=== PATIENT | male | born 1975 | race African-American/Black ===

== ENCOUNTER 2019-01-09 09:55 | Emergency (ER) | payer MEDICAID ==
[~2019-01-09] VITALS: Ht 188 cm; Wt 122.5 kg
--- NOTE | 2019-01-09 10:14 | NUR ---
BIB SELF. AAOX4. AMBULATORY W/O ASSIST. NAD. PT CAME IN WITH COMPLAINTS OF HEARING VOICES TELLING HIM TO RUN ONTO TRAFFIC. PT HAS NO PLANS OF HURTING HIMSELF NOR HURTING ANYBODY ELSE. AWAITING MD FOR EVAL.
--- NOTE | 2019-01-09 10:17 | NUR ---
URINE COLLECTED AND SENT TO LAB
[2019-01-09 10:46] LABS: BASOPHILS # (AUTO) 0.1 /CMM (0.0-0.2); BASOPHILS % (AUTO) 1.1 % (0.0-2.0); EOSINOPHILS % (AUTO) 1.1 % (0.0-6.0); HEMATOCRIT 42 % (39-51); HEMOGLOBIN 13.5 g/dL (13.5-17.5); LYMPHOCYTES # (AUTO) 2.1 /CMM (0.8-4.8); LYMPHOCYTES % (AUTO) 29.2 % (20.0-44.0); MEAN CORPUSCULAR HGB CONC 32 g/dl (31.0-36.0); MEAN CORPUSCULAR VOLUME 70 fL (80-96); MONOCYTES # (AUTO) 0.8 /CMM (0.1-1.30); MONOCYTES % (AUTO) 10.5 % (2.0-12.0); NEUTROPHILS # (AUTO) 4.2 /CMM (1.8-8.9); NEUTROPHILS % (AUTO) 58.1 % (43.0-81.0); PLATELET COUNT (AUTO) 265 /CMM (150-450); RED BLOOD CELL COUNT(AUTO) 6.03 MIL/uL (4.5-6.0); WHITE BLOOD COUNT (AUTO) 7.3 K/uL (4.3-11.0)
[2019-01-09 10:48] LABS: APPEARANCE,URINE Clear (CLEAR); BILIRUBIN,URINE Negative (NEGATIVE); BLOOD, URINE Negative Ery/uL (NEGATIVE); COLOR,URINE Yellow (YELLOW); KETONES,URINE Negative (NEGATIVE); LEUKOCYTE ESTERASE ,URINE Negative (NEGATIVE); NITRITE, URINE Negative (NEGATIVE); PROTEIN,URINE Negative (NEGATIVE); UGLUCOSE Negative (NEGATIVE); UROBILINOGEN,URINE 0.2 EU/dL (0.2)
[2019-01-09 10:54] LABS: CALCIUM, SERUM 8.6 mg/dL (8.5-10.1); CREATININE 1.2 mg/dL (0.6-1.3); POTASSIUM 3.7 mmol/L (3.5-5.1)
--- NOTE | 2019-01-09 10:55 | NUR ---
TECH AT BEDSIDE FOR EKG
[2019-01-09 10:59] LABS: ALBUMIN 3.9 g/dL (3.4-5.0); BILIRUBIN,DIRECT 0.2 mg/dL (0.0-0.2); BILIRUBIN,TOTAL 0.7 mg/dL (0.2-1.0); SALICYLATE 0.2 mg/dL (2.8-20.0)
--- NOTE | 2019-01-09 11:37 | NUR ---
PAGED ART FOR EVAL - ETA 60 MIN
--- NOTE | 2019-01-09 13:35 | NUR ---
JOSE FROM [facility] CALLED, STATED THAT PT IS BEING ACCEPTED BY DR GARZA. RN RO RN REPORT NUMBER [phone].
--- NOTE | 2019-01-09 13:52 | NUR ---
CALLED [facility] TO GIVE REPORT. SPOKE WITH RADHA OLVERA. OCCUPATIONAL THER ETA 1 HOUR.
--- NOTE | 2019-01-09 14:38 | NUR ---
PT PICKED UP BY [facility]. REPORT GIVEN TO JOCELIN, UN[address]. TRIP# [id number]. PT IN STABLE CONDITION. AMBULATORY. BREATHING EVEN AND UNLABORED. NO COMPLAINTS OF ANY PAIN. DC INTRUCTIONS GIVEN AND UNDERSTOOD BY THE PATIENT.
[2019-01-09 14:41] VITALS: BP 140/72
== END 2019-01-09 14:44 ==
LOC: ER 09:57
DX: R45.851 Suicidal ideations (principal); F29 Unspecified psychosis not due to a substance or known physiological condition; I10 Essential (primary) hypertension; F25.9 Schizoaffective disorder, unspecified; F15.10 Other stimulant abuse, uncomplicated; Z60.2 Problems related to living alone
CPT/HCPCS: 36415; 80048; 80076; 80305; 80307; 80329; 81001; 84484; 85025; 93005; 99285; G0480; 81000-TC

== ENCOUNTER 2019-02-25 15:47 | Emergency (ER) | payer MEDICAID ==
[~2019-02-25] VITALS: Ht 188 cm; Wt 122.5 kg
--- NOTE | 2019-02-25 15:47 | NUR ---
PT BIBLAPD FROM THE STREETS WITH C/O S/I, PT AAOX4, SI PRECAUTIONS STARTED, PT TO BED 6, PT AMBULATORY, PENDING ER PROVIDER ADRIANNE
--- NOTE | 2019-02-25 16:17 | NUR ---
CALLED ALTERATION TAILOR APPRENTICE FOR A SITTER.
[2019-02-25 16:20] LABS: APPEARANCE,URINE Clear (CLEAR); BILIRUBIN,URINE Negative (NEGATIVE); BLOOD, URINE Trace-intact Ery/uL (NEGATIVE); COLOR,URINE Yellow (YELLOW); KETONES,URINE Trace (NEGATIVE); LEUKOCYTE ESTERASE ,URINE Negative (NEGATIVE); NITRITE, URINE Negative (NEGATIVE); PH,URINE 5.5 (5.0-8.0); PROTEIN,URINE Negative (NEGATIVE); UGLUCOSE Negative (NEGATIVE)
[2019-02-25 16:22] LABS: BASOPHILS # (AUTO) 0.1 /CMM (0.0-0.2); BASOPHILS % (AUTO) 1.1 % (0.0-2.0); EOSINOPHILS % (AUTO) 1.5 % (0.0-6.0); HEMATOCRIT 44 % (39-51); HEMOGLOBIN 14.1 g/dL (13.5-17.5); LYMPHOCYTES # (AUTO) 2.2 /CMM (0.8-4.8); MEAN CORPUSCULAR HGB CONC 32 g/dl (31.0-36.0); MEAN CORPUSCULAR VOLUME 72 fL (80-96); MONOCYTES # (AUTO) 0.6 /CMM (0.1-1.30); MONOCYTES % (AUTO) 7.8 % (2.0-12.0); NEUTROPHILS % (AUTO) 62.6 % (43.0-81.0); PLATELET COUNT (AUTO) 180 /CMM (150-450); RED BLOOD CELL COUNT(AUTO) 6.12 MIL/uL (4.5-6.0); WHITE BLOOD COUNT (AUTO) 8.1 K/uL (4.3-11.0)
--- NOTE | 2019-02-25 16:25 | NUR ---
URINE COLLECTED AND SENT TO LAB
--- NOTE | 2019-02-25 16:25 | NUR ---
SECURITY CALLED TO CHECK PT BELONGINGS, PT ENDORSES BEING SUICIDAL
[2019-02-25 16:34] LABS: CALCIUM, SERUM 8.3 mg/dL (8.5-10.1); CARBON DIOXIDE 25 mmol/L (21-32); CHLORIDE 105 mmol/L (98-107); CREATININE 1.2 mg/dL (0.6-1.3); GLUCOSE 107 mg/dL (74-106); POTASSIUM 3.4 mmol/L (3.5-5.1); SODIUM SERUM 143 mmol/L (136-145); UREA NITROGEN, BLOOD 16 mg/dL (7-18)
[2019-02-25 16:35] LABS: BACTERIA,URINE None seen /HPF (None Seen); RBC,URINE 0-2 /HPF (0-2); SQUAMOUS EPITHELIAL CELL,UR None Seen /HPF (None Seen); WBC,URINE 0-2 /HPF (0-3)
[2019-02-25 16:39] LABS: ALANINE AMINOTRANSFERASE 23 U/L (12-78); ALCOHOL, BLOOD 145 mg/dL (0-0); ALKALINE PHOSPHATASE 90 U/L (46-116); ASPARTATE AMINOTRANSFERASE 31 U/L (15-37); BILIRUBIN,DIRECT 0.1 mg/dL (0.0-0.2); BILIRUBIN,TOTAL 0.5 mg/dL (0.2-1.0); SALICYLATE 7.1 mg/dL (2.8-20.0); TOTAL PROTEIN, SERUM 8.4 g/dL (6.4-8.2)
[2019-02-25 16:42] LABS: ACETAMINOPHEN < 5 ug/ml (10-30)
--- NOTE | 2019-02-25 18:02 | NUR ---
WILLI CALLED, GAVE 1 HOUR ETA (APPROX [phone])
[2019-02-25] MEDS ORDERED: OLANZAPINE 5 MG TABLET ONE (20:16)
[2019-02-25] MEDS ORDERED: OLANZAPINE 10 MG VIAL IM ONE ×3 (20:19→20:31)
[2019-02-25] MEDS ORDERED: OLANZAPINE 5 MG TABLET PO ONE (20:30)
[2019-02-25] MEDS ORDERED: LORAZEPAM INJ 2 MG/ML VIAL IM ONE (20:30)
[2019-02-25] MEDS ORDERED: LORAZEPAM INJ 2 MG/ML VIAL ONE (20:31)
[2019-02-26] MEDS ORDERED: LORAZEPAM INJ 2 MG/ML VIAL ONE (00:29)
[2019-02-26] MEDS ORDERED: LORAZEPAM INJ 2 MG/ML VIAL IM ONE (00:30)
--- NOTE | 2019-02-26 00:38 | NUR ---
REPORT GIVEN TO CHRIS WILEY AT [facility]. ETA OF 1AM TO [facility].
[2019-02-26] MEDS ORDERED: OLANZAPINE 10 MG VIAL IM ONE ×2 (01:21→01:30)
[2019-02-26] MEDS ORDERED: CLONIDINE HCL 0.1 MG TABLET ONE (04:10)
[2019-02-26] MEDS ORDERED: CLONIDINE HCL 0.1 MG TABLET PO ONE (04:30)
[2019-02-26 05:06] VITALS: BP 157/103
--- NOTE | 2019-02-26 05:11 | NUR ---
AMBULNTal ETA 0800.
--- NOTE | 2019-02-26 07:57 | NUR ---
PT TRANSFERED TO [facility] IN STABLE CONDITION VIA AMBULANZ.
== END 2019-02-26 07:59 ==
LOC: ER 15:50
DX: F29 Unspecified psychosis not due to a substance or known physiological condition (principal); F10.129 Alcohol abuse with intoxication, unspecified; F31.9 Bipolar disorder, unspecified; F12.10 Cannabis abuse, uncomplicated; F15.90 Other stimulant use, unspecified, uncomplicated; Y90.6 Blood alcohol level of 120-199 mg/100 ml; Z60.2 Problems related to living alone
CPT/HCPCS: 36415; 80048; 80076; 80305; 80307 ×2; 80329; 81001; 85025; 96372 ×4; 99285; G0480; J2060 ×2; J3490 ×2; J7030 ×2; 81000-TC

== ENCOUNTER 2019-03-04 23:45 | Emergency (ER) | payer MEDICAID ==
[~2019-03-04] VITALS: Ht 188 cm; Wt 99.8 kg
--- NOTE | 2019-03-04 23:50 | NUR ---
PT ASHIA FROM STREETS C/O SI WITH PLAN TO CUT HIMSELF AND AUDITORY HALLUCINATIONS. DENIES HI AT THIS TIME. PT STATES HE USUALLY TAKES WELLBUTRIN AND SEROQUIL, BUT "MEDS GOT STOLEN ON THE STREETS". PT AAOX4. CALM AND COOPERATIVE. RESPIRATIONS EVEN AND UNLABORED. SKIN INTACT. ABLE TO AMBULATE WITH STEADY GAIT. WILL CONTINUE TO MONITOR.
--- NOTE | 2019-03-05 00:10 | NUR ---
URINE COLLECTED AND SENT TO LAB
--- NOTE | 2019-03-05 00:52 | NUR ---
FISHER SPEAR AT BEDSIDE FOR BLOODDRAW
[2019-03-05 00:58] LABS: BASOPHILS # (AUTO) 0.1 /CMM (0.0-0.2); BASOPHILS % (AUTO) 0.7 % (0.0-2.0); HEMATOCRIT 45 % (39-51); HEMOGLOBIN 14.3 g/dL (13.5-17.5); LYMPHOCYTES # (AUTO) 3.3 /CMM (0.8-4.8); LYMPHOCYTES % (AUTO) 30.7 % (20.0-44.0); MEAN CORPUSCULAR HGB CONC 32 g/dl (31.0-36.0); MEAN CORPUSCULAR VOLUME 72 fL (80-96); MONOCYTES # (AUTO) 0.8 /CMM (0.1-1.30); MONOCYTES % (AUTO) 7.2 % (2.0-12.0); NEUTROPHILS # (AUTO) 6.4 /CMM (1.8-8.9); NEUTROPHILS % (AUTO) 60.4 % (43.0-81.0); PLATELET COUNT (AUTO) 266 /CMM (150-450); RED BLOOD CELL COUNT(AUTO) 6.31 MIL/uL (4.5-6.0); WHITE BLOOD COUNT (AUTO) 10.6 K/uL (4.3-11.0)
[2019-03-05] MEDS ORDERED: buPROPion 75 MG TABLET PO ONE (01:00)
[2019-03-05] MEDS ORDERED: QUETIAPINE FUMARATE 100 MG TABLET PO SCH (01:00)
[2019-03-05 01:06] LABS: CALCIUM, SERUM 8.9 mg/dL (8.5-10.1); CREATININE 1.3 mg/dL (0.6-1.3); POTASSIUM 3.3 mmol/L (3.5-5.1)
[2019-03-05] MEDS ORDERED: buPROPion 75 MG TABLET ONE (01:09)
[2019-03-05 01:10] LABS: SALICYLATE 1.9 mg/dL (2.8-20.0)
[2019-03-05] MEDS ORDERED: QUETIAPINE FUMARATE 25 MG TABLET ONE (01:14)
[2019-03-05 01:19] LABS: APPEARANCE,URINE Clear (CLEAR); BILIRUBIN,URINE Negative (NEGATIVE); BLOOD, URINE Trace-intact Ery/uL (NEGATIVE); COLOR,URINE Yellow (YELLOW); KETONES,URINE Negative (NEGATIVE); LEUKOCYTE ESTERASE ,URINE Negative (NEGATIVE); NITRITE, URINE Negative (NEGATIVE); PH,URINE 5.5 (5.0-8.0); PROTEIN,URINE Negative (NEGATIVE); UGLUCOSE Negative (NEGATIVE); UROBILINOGEN,URINE 0.2 EU/dL (0.2)
[2019-03-05 01:30] LABS: LYMPHOCYTES % (MANUAL) 32 % (16-48); MONOCYTES % (MANUAL) 8 % (0-11.0); NEUTROPHILS % (MANUAL) 60 (42-76)
--- NOTE | 2019-03-05 01:50 | NUR ---
PT INCREASINGLY GETTING AGITATED, PACING AROUND, HALLUCINATING STATES "SOMEBODY IS GOING TO TRY TO KILL ME" ER MD MADE AWARE WITH ORDERS RECEIVED.
[2019-03-05] MEDS ORDERED: HALOPERIDOL 5 MG TABLET ONE (01:57)
[2019-03-05] MEDS ORDERED: LORAZEPAM 1 MG TABLET ONE (01:57)
[2019-03-05] MEDS ORDERED: HALOPERIDOL 1 MG TABLET PO ONE (02:00)
[2019-03-05] MEDS ORDERED: LORAZEPAM 1 MG TABLET PO ONE (02:00)
--- NOTE | 2019-03-05 02:05 | NUR ---
PT BECAME VERY AGGRESSIVE AND HIT THE SAFETY GLASS WINDOW IN THE ROOM. SECURITY AND ER STAFF ASSISTED PT IN BED, BILATERAL VELCRO WRIST RESTRAINTS APPLIED PER ER MD ORDER. PT AGREED TO TAKE MED ORALLY, PT MEDICATED PER ER MD ORDER. WILL CONTINUE TO MONITOR PT CLOSELY.
[2019-03-05 02:21] LABS: BACTERIA,URINE Rare /HPF (None Seen); RBC,URINE 0-2 /HPF (0-2); SQUAMOUS EPITHELIAL CELL,UR Rare /HPF (None Seen)
--- NOTE | 2019-03-05 02:41 | NUR ---
PT REMAINS RESTLESS, KEEPS ROCKING THE THE GURNEY. ATTEMPTED TO CALM PT DOWN, PROVIDED WATER. WILL CONTINUE TO MONITOR PT CLOSELY.
[2019-03-05] MEDS ORDERED: diphenhydrAMINE HCL 50 MG/ML VIAL ONE (02:47)
[2019-03-05] MEDS ORDERED: WATER FOR INJECTION,STERILE 10 ML ONE (02:48)
[2019-03-05] MEDS ORDERED: ZIPRASIDONE MESYLATE 20 MG/VIAL VIAL IM ONE ×2 (02:48→03:00)
[2019-03-05] MEDS ORDERED: diphenhydrAMINE HCL 50 MG/ML VIAL IV ONE (03:00)
--- NOTE | 2019-03-05 04:16 | NUR ---
PT REMIANS AWAKE BUT MORE CALM AND COOPERATIVE, R VELCRO WRIST RESTRAINTS REMOVED. WILL CONTINUE TO MONITOR PT CLOSELY.
--- NOTE | 2019-03-05 04:30 | NUR ---
RESTRAINTS REMOVED. PT CALM AND COOPERATIVE AT THIS TIME. WILL CONTINUE TO MONITOR PT CLOSELY.
--- NOTE | 2019-03-05 05:33 | NUR ---
JUAN SNELLW AT BEDSIDE TO EVAL PT. PT REMIANS CALM AND COOPERATIVE AT THIS TIME.
[2019-03-05] MEDS ORDERED: LORAZEPAM INJ 2 MG/ML VIAL IVP ONE (06:30)
[2019-03-05] MEDS ORDERED: IV NS 0.9% 1,000 ML BAG IV ONE (06:30)
[2019-03-05] MEDS ORDERED: LORAZEPAM INJ 2 MG/ML VIAL ONE ×2 (06:41→09:27)
--- NOTE | 2019-03-05 06:50 | NUR ---
CALL FROM [facility] INTAKE. WILL NOT BE ACCEPTING PT.
--- NOTE | 2019-03-05 06:55 | NUR ---
PT INFO FAXED TO [facility]. FAX [phone]. PHONE- [phone]
--- NOTE | 2019-03-05 07:30 | NUR ---
PATIENT A/OX4, BREATHING EVEN AND UNLABORED, SLIGHTLY RESTLESS, ABLE TO BE REDIRECTED. COOPERATIVE AT THIS TIME. WILL CONTINUE TO MONITOR.
--- NOTE | 2019-03-05 08:00 | NUR ---
PATIENT OFF OF THE RESTRAINTS, WANDERING IN THE HALLWAY. NO DISTRESS NOTED.
--- NOTE | 2019-03-05 08:58 | NUR ---
[facility] STRONG CALLED,SPOKE WITH GENNA, WAITING ON D/C
[2019-03-05] MEDS ORDERED: AMLODIPINE BESYLATE 5 MG TABLET ONE (09:27)
[2019-03-05] MEDS ORDERED: AMLODIPINE BESYLATE 5 MG TABLET PO ONE (09:30)
[2019-03-05] MEDS ORDERED: LORAZEPAM INJ 2 MG/ML VIAL IV ONE (09:30)
--- NOTE | 2019-03-05 09:36 | NUR ---
[facility]CO STRONG CALLED AND REQUESTING FOR REPEAT ALCOHOL AND TX FOR THE K LEVEL. DR. MCKEON MADE AWARE.
[2019-03-05] MEDS ORDERED: POTASSIUM CHLORIDE 20 MEQ TAB.PRT.SR PO ONE ×2 (09:46→10:00)
--- NOTE | 2019-03-05 10:15 | NUR ---
PATIENT IS LOOKING FOR HIS WALLET AND CELLPHONE, LOOKED IN THE ROOM AND AT THE LOST AND FOUND SECTION, UNABLE TO FIND WALLET AND CELLPHONE. PER PATIENT HE HAS MINA IN HIS POCKET, BUT NO WALLET.
--- NOTE | 2019-03-05 11:09 | NUR ---
CASE PRESENTED TO [facility] - LABS REVIEWED - AWAITING FOR THE BED
--- NOTE | 2019-03-05 12:00 | NUR ---
PATIENT IN NAD, VSS. WILL CONTINUE TO MONITOR.
--- NOTE | 2019-03-05 13:15 | NUR ---
[facility] STRONG CALLED, EARLIEST DISCHARGE IS 1500
--- NOTE | 2019-03-05 15:06 | NUR ---
FOR REPORT CALL [phone] AT 1600
--- NOTE | 2019-03-05 15:32 | NUR ---
CALLED FOR BLS TRANSPORT ETA 90 MINS (APPROX 1700), TRIP # [id number]
--- NOTE | 2019-03-05 17:48 | NUR ---
REPORT GIVEN TO LIN GARCIA AT [facility].
--- NOTE | 2019-03-05 17:50 | NUR ---
PATIENT LEFT FOR [place] [facility] IN STABLE CONDITION. VSS. NO DISTRESS NOTED. DISCHARGE INSTRUCTIONS PROVIDED, PATIENT VERBALIZED UNDERSTANDING. NO IV LINE ESTABLISHED.
[2019-03-05 18:45] VITALS: BP 155/97
== END 2019-03-05 18:46 ==
LOC: ER 23:49
DX: R45.851 Suicidal ideations (principal); F19.129 Other psychoactive substance abuse with intoxication, unspecified; F29 Unspecified psychosis not due to a substance or known physiological condition; F31.9 Bipolar disorder, unspecified; F10.10 Alcohol abuse, uncomplicated; R45.1 Restlessness and agitation; Y90.6 Blood alcohol level of 120-199 mg/100 ml; Z60.2 Problems related to living alone
CPT/HCPCS: 36415; 80048; 80305; 80307 ×2; 80329; 81001; 85025; 96372 ×2; 96374; 96376; 99285; G0480; J1200; J2060 ×2; J3486; J7030; 81000-TC

== ENCOUNTER 2019-03-25 19:15 | Inpatient (IN) | payer MEDICAID ==
[~2019-03-25] VITALS: Ht 188 cm; Wt 125.6 kg
--- NOTE | 2019-03-25 20:00 | NUR ---
CALLED NURSING SUP FOR SP
--- NOTE | 2019-03-25 20:01 | NUR ---
ALL BELONGINGS KEPT IN UTILITY ROOM FOR S/I PRECAUTION; PT WANDED BY SECURITY
--- NOTE | 2019-03-25 20:11 | NUR ---
SITTER AT BEDSIDE
--- NOTE | 2019-03-25 20:13 | NUR ---
DR. ORDAZ AT BEDSIDE FOR EVAL. PT C/O "COUGHING UP BLOOD D/T LIVER PROBLEMS AND FEELS LIKE PEOPLE ARE FOLLOWING HIM" PT AOX3 RR EVEN AND UNLABORED. NO ACTIVE NVD AT THIS TIME. NO ACUTE DISTRESS NOTED. PT PLACED ON SAFETY PRECAUTION. SITTER AT BEDSIDE.
[2019-03-25] MEDS ORDERED: OLANZAPINE 5 MG TABLET ONE (20:22)
[2019-03-25] MEDS ORDERED: OLANZAPINE 5 MG TABLET PO ONE (20:30)
[2019-03-25 20:32] LABS: BASOPHILS # (AUTO) 0.1 /CMM (0.0-0.2); BASOPHILS % (AUTO) 0.7 % (0.0-2.0); EOSINOPHILS % (AUTO) 1.1 % (0.0-6.0); HEMATOCRIT 43 % (39-51); HEMOGLOBIN 13.6 g/dL (13.5-17.5); LYMPHOCYTES # (AUTO) 1.8 /CMM (0.8-4.8); LYMPHOCYTES % (AUTO) 19.7 % (20.0-44.0); MEAN CORPUSCULAR HGB CONC 32 g/dl (31.0-36.0); MEAN CORPUSCULAR VOLUME 71 fL (80-96); MONOCYTES # (AUTO) 0.6 /CMM (0.1-1.30); MONOCYTES % (AUTO) 6.9 % (2.0-12.0); NEUTROPHILS # (AUTO) 6.7 /CMM (1.8-8.9); NEUTROPHILS % (AUTO) 71.6 % (43.0-81.0); PLATELET COUNT (AUTO) 156 /CMM (150-450); RED BLOOD CELL COUNT(AUTO) 5.98 MIL/uL (4.5-6.0); WHITE BLOOD COUNT (AUTO) 9.4 K/uL (4.3-11.0)
[2019-03-25 20:51] LABS: CARBON DIOXIDE 27 mmol/L (21-32); CHLORIDE 102 mmol/L (98-107); GLUCOSE 114 mg/dL (74-106); POTASSIUM 3.7 mmol/L (3.5-5.1); SODIUM SERUM 139 mmol/L (136-145); UREA NITROGEN, BLOOD 11 mg/dL (7-18)
[2019-03-25 20:56] LABS: ALANINE AMINOTRANSFERASE 29 U/L (12-78); ALBUMIN 3.7 g/dL (3.4-5.0); ALCOHOL, BLOOD < 3 mg/dL (0-0); ALKALINE PHOSPHATASE 76 U/L (46-116); ASPARTATE AMINOTRANSFERASE 53 U/L (15-37); BILIRUBIN,DIRECT 0.1 mg/dL (0.0-0.2); BILIRUBIN,TOTAL 0.6 mg/dL (0.2-1.0)
[2019-03-25 20:57] LABS: ACETAMINOPHEN < 2 ug/ml (10-30); SALICYLATE 0.8 mg/dL (2.8-20.0)
--- NOTE | 2019-03-25 21:11 | NUR ---
PT ADMITS TO SMOKING COCAINE THIS MORNING. DR. ORDAZ MADE AWARE. PT HAS NOT PROVIDE URINE AT THIS TIME. PT GIVEN UA CUP, RECEIVED INSTRUCTIONS. PT VERBALIZED UNDERSTANDING.
[2019-03-25] MEDS ORDERED: LORAZEPAM INJ 2 MG/ML VIAL ONE ×3 (21:20→23:28)
[2019-03-25] MEDS ORDERED: LORAZEPAM INJ 2 MG/ML VIAL IV ONE ×3 (21:30→23:30)
--- NOTE | 2019-03-25 22:08 | NUR ---
URINE COLLECTED SENT TO LAB
[2019-03-25 22:15] LABS: APPEARANCE,URINE Clear (CLEAR); BILIRUBIN,URINE Negative (NEGATIVE); BLOOD, URINE Trace-intact Ery/uL (NEGATIVE); COLOR,URINE Yellow (YELLOW); KETONES,URINE Negative (NEGATIVE); LEUKOCYTE ESTERASE ,URINE Negative (NEGATIVE); NITRITE, URINE Negative (NEGATIVE); PH,URINE 6.5 (5.0-8.0); PROTEIN,URINE Negative (NEGATIVE); UGLUCOSE Negative (NEGATIVE); UROBILINOGEN,URINE 0.2 EU/dL (0.2)
[2019-03-25 22:27] LABS: BACTERIA,URINE Rare /HPF (None Seen); SQUAMOUS EPITHELIAL CELL,UR Rare /HPF (None Seen); WBC,URINE 0-2 /HPF (0-3)
--- NOTE | 2019-03-25 22:48 | NUR ---
PT MOVED TO ER BED 14, SITTER AT BEDSIDE.
[2019-03-25] MEDS ORDERED: IV NS 0.9% 1,000 ML BAG IV ONE (23:30)
--- NOTE | 2019-03-25 23:35 | NUR ---
ERPIC PAGED FOR PANEL ADMISSION, WAITING FOR YARD SUPERVISOR ROSARIO TO CALL BACK.
--- NOTE | 2019-03-25 23:40 | NUR ---
DR. ORDAZ SPOKE TO DR. PONCE REGARDING ADMISSION./
--- NOTE | 2019-03-25 23:41 | NUR ---
PT ASSIGNED TO [address] [facility]
--- NOTE | 2019-03-25 23:48 | NUR ---
REPORT GIVEN TO RADHA ROY FOR CONTINUITY OF CARE. BED 109
--- NOTE | 2019-03-26 00:26 | NUR ---
PT TRANSFERRED TO [facility] 109 PER ACLS PROTOCOL. PT ACCOMPANIED BY SITTER.
[2019-03-26] MEDS ORDERED: MAG HYDROX/AL HYDROX/SIMETH 30 ML UDC PO PRN (00:30)
[2019-03-26] MEDS ORDERED: MAGNESIUM HYDROXIDE 30 ML UDC PO PRN (00:30)
[2019-03-26] MEDS ORDERED: ACETAMINOPHEN 325 MG TABLET PO PRN (00:30)
[2019-03-26] MEDS ORDERED: Z GUARD REMEDY 2 OZ OINT TP PRN (00:30)
[2019-03-26] MEDS ORDERED: ONDANSETRON HCL/PF 4 MG/2 ML VIAL IVP PRN (00:30)
[2019-03-26] MEDS ORDERED: LORAZEPAM INJ 2 MG/ML VIAL IV PRN (00:30)
[2019-03-26] MEDS ORDERED: HYDROCODONE/APAP 5/325MG 1 EACH TABLET PO PRN (00:30)
[2019-03-26] MEDS ORDERED: IV NS 0.9% 1,000 ML IV PRN (00:30)
[2019-03-26 00:35] VITALS: BP 167/110
--- NOTE | 2019-03-26 00:40 | NUR ---
RN INITIAL NOTES RECEIVED PT FROM THE ED VIA STRETCHER. A&OX2. PT HAS #20G IN HIS R AC, WITH FLUIDS INFUSING. PT C/O OF L FLANK PAIN 05/02. 1:1 SITTER AT BED SIDE. ALL SAFETY PRECAUTIONS TAKEN, BED IN LOW LOCKED POSITION, CALL LIGHT AT BED SIDE. L FA SUPERFICIAL CUTS, PICS TAKEN. WILL CONT TO MONITOR.
--- NOTE | 2019-03-26 01:00 | NUR ---
RN NOTES PT STATED THAT HE HAD SUICIDE PLAN, HE WAS GOING TO TAKE PILLS. 1;1 SITTER AT BEDSIDE. CHARGE NURSE NOTIFIED, NURSING CHAPLAIN NOTIFIED. WILL NOTIFY MD AND ORDER PSYCH CONSUL.
[2019-03-26 04:00] VITALS: BP 165/108
--- NOTE | 2019-03-26 04:00 | NUR ---
RN NOTES PT STATED HE WAS HAVING DIFFICULTY VOIDING, BLADDER SCAN WAS DONE, AMOUNT 700. PAGED FOR STRAIGHT CATH ORDER.
--- NOTE | 2019-03-26 04:50 | NUR ---
RN NOTES PT VOIDED 500
--- NOTE | 2019-03-26 05:03 | NUR ---
RN NOTES SPOKE TO MD TOLD HIM ABOUT PTS PLAN FOR SUICIDE AND HIGH B/P. MD WILL ORDER PSYCH CONSULT AND ORDER FOR B/P MEDS WERE GIVEN. ALSO MD WAS NOTIFIED OF PTS BLADDER SCAN AMOUNT OF 700, PT VOIDED 500.
[2019-03-26] MEDS: hydrALAZINE HCL 25 MG TABLET PO PRN ×2 (05:34→13:07)
--- NOTE | 2019-03-26 06:27 | NUR ---
RN CLOSING NOTES PT MOVED CLOSER TO NURSING STATION, SITTER AT BEDSIDE, MEDS GIVEN FOR WITHDRAWAL. SECURITY CALLED SEVERAL TIMES OVER NIGHT. MD ORDERED AN INCREASE IN MEDS. WILL ENDORSE TO AM RN.
[2019-03-26] MEDS ORDERED: PANTOPRAZOLE 40 MG TABLET.DR PO SCH (07:30)
--- NOTE | 2019-03-26 07:30 | NUR ---
RN NOTE: RECEIVED PATIENT IN BED AWAKE, ALERT TO HIS NAME, PLACE AND NOTED GUARDED UPON GETTING INSIDE HIS ROOM. PATIENT ON 1:1 SITTER. RESPIRATION EVEN AND UNLABORED. UPON RECEIVING ENDORSEMENT FROM PM SHIFT NURSE, PATIENT HAD BEEN REFUSING TO BE CONNECTED TO THE IV FLUID. (R) AC IV SITE WAS NOTED PATENT AND INTACT WITH GOOD BLOOD RETURN. HOB ELEVATED. CALL LIGHT WITHIN REACH. NEEDS ANTICIPATED. WILL AWAIT FOR THE HOSPITALIST TO ASK IF HE WANTED AN [place] BI ADMINISTRATOR TO SEE THE PATIENT IN ORDER TO GET EVALUATED FOR A HOLD. WILL MONITOR PATIENT'S CONDITION AND BEHAVIOR.
[2019-03-26 07:38] LABS: BASOPHILS % (AUTO) 0.3 % (0.0-2.0); EOSINOPHILS % (AUTO) 0.2 % (0.0-6.0); HEMATOCRIT 42 % (39-51); HEMOGLOBIN 13.5 g/dL (13.5-17.5); LYMPHOCYTES # (AUTO) 1.1 /CMM (0.8-4.8); LYMPHOCYTES % (AUTO) 15.4 % (20.0-44.0); MEAN CORPUSCULAR HGB CONC 32 g/dl (31.0-36.0); MEAN CORPUSCULAR VOLUME 70 fL (80-96); MONOCYTES # (AUTO) 0.6 /CMM (0.1-1.30); MONOCYTES % (AUTO) 8.1 % (2.0-12.0); NEUTROPHILS # (AUTO) 5.4 /CMM (1.8-8.9); PLATELET COUNT (AUTO) 162 /CMM (150-450); RED BLOOD CELL COUNT(AUTO) 5.95 MIL/uL (4.5-6.0); WHITE BLOOD COUNT (AUTO) 7.1 K/uL (4.3-11.0)
[2019-03-26 07:51] LABS: ALBUMIN 3.7 g/dL (3.4-5.0); BILIRUBIN,TOTAL 0.8 mg/dL (0.2-1.0); CALCIUM, SERUM 8.8 mg/dL (8.5-10.1); CREATININE 1.1 mg/dL (0.6-1.3); MAGNESIUM 1.8 mg/dL (1.8-2.4); PHOSPHORUS 2.1 mg/dL (2.5-4.9); POTASSIUM 3.5 mmol/L (3.5-5.1); TOTAL PROTEIN, SERUM 7.7 g/dL (6.4-8.2)
[2019-03-26] MEDS: LORAZEPAM INJ 2 MG/ML VIAL IV PRN ×2 (07:52→15:14)
[2019-03-26 07:59] LABS: THYROID STIMULATING HORMONE 4.009 uIU/mL (0.358-3.74)
[2019-03-26 08:00] VITALS: BP 161/95
[2019-03-26] MEDS ORDERED: HALOPERIDOL LACTATE INJ 5 MG/ML VIAL IM PRN (09:00)
[2019-03-26] MEDS ORDERED: THIAMINE HCL 100 MG TABLET PO SCH (09:00)
--- NOTE | 2019-03-26 10:18 | NUR ---
RN NOTE: SPOKE WITH Tanya LYNCH DNP THAT PATIENT HAS BEEN REFUSING TO HAVE HIS IV FLUID TO BE GIVEN TO HIM. PATIENT WAS DRINKING ORAL FLUID. Tanya LYNCH DNP GAVE AN ORDER TO DC THE IV FLUID ORDER. PATIENT INFORMED.
--- NOTE | 2019-03-26 10:28 | NUR ---
RN NOTE: DR. DANIELLE (PSYCHIATRIST) CAME AND EVALUATED THE PATIENT WHO CAME IN FOR SUICIDAL IDEATION. PATIENT WAS VERBALIZING THAT HE WAS HEARING VOICES THAT WANTED TO KILL HIM. PATIENT STATED THAT HE WANTED TO GO TO A PSYCHIATRIC HOSPITAL BECAUSE HE WAS VERY DEPRESS. PER DR. DANIELLE, THE PATIENT DID NOT MEET A CRITERIA TO BE PUT ON A 5150 HOLD. Tanya LYNCH DNP STILL IN THE UNIT AND WAS INFORMED ABOUT THE EVALUATION OF DR. DANIELLE. CASE MANAGEMENT CONSULT WAS ORDERED FOR THE PATIENT'S TRANSFER TO A PSYCHIATRIC HOSPITAL.
[2019-03-26] MEDS ORDERED: QUETIAPINE FUMARATE 25 MG TABLET PO PRN (10:30)
[2019-03-26 12:00] VITALS: BP 158/98
--- NOTE | 2019-03-26 13:10 | NUR ---
RN NOTE: PEYMAN RODRIGUEZ NP OF DR. SCHUMACHER (NEUROLOGIST) CAME BY AND EVALUATED THE PATIENT. PATIENT WAS ABLE TO ANSWER SIMPLE COMMANDS AND PATIENT PERSISTENTLY ASKED THAT HE WANTED TO GO TO [facility].
[2019-03-26] MEDS ORDERED: K PHOS NEUTRAL 250 MG TABLET PO ONE (13:30)
[2019-03-26 16:00] VITALS: BP 157/91
--- NOTE | 2019-03-26 18:06 | NUR ---
RN NOTE: CALLED AND SPOKE WITH RADHA CARVALHO FROM [facility] ([phone] EXT. [phone]) AND MADE HER AWARE THAT THE PATIENT WAS GOING TO THEIR FACILITY FOR PSYCHIATRIC EVALUATION. PERTINENT INFORMATION WAS GIVEN TO RADHA CARVALHO AND SHE WAS INFORMED THAT PICK-UP TIME WILL BE 1830 AND RECEIVING DOCTOR WILL BE DR. MCINTYRE. NO ROOM NUMBER WAS PROVIDED BY THE RECEIVING NURSE BECAUSE SHE SAID "I CAN NOT GIVE YOU A ROOM NUMBER BECAUSE WE HAVE NOT ACCEPTED THE PATIENT." HYDRANT SETTER ERROL WAS INFORMED.
--- NOTE | 2019-03-26 18:45 | NUR ---
STORYBOARD ARTIST NOTE: PATIENT WAS DISCHARGED TO [facility] AND HE WAS TRANSPORTED VIA [facility] WITH 2 BILINGUAL CALL CENTER REPRESENTATIVE. (R) AC IV SITE WAS REMOVED PRIOR TO DISCHARGE. ALL PAPERWORK WAS HANDED TO THE BILINGUAL CALL CENTER REPRESENTATIVE. PATIENT REFUSED TO SIGN HIS PAPERWORK. PATIENT REMAINED ALERT, ORIENTED X 1-2, NOT VERBALIZING OR ANY THOUGHTS OF SUICIDAL IDEATION WITHIN THE SHIFT. ALL BELONGINGS WERE RELEASED TO THE PATIENT UPON DISCHARGE. EXIT CARE WAS DONE AND DISCHARGE PACKET WAS HANDED TO THE BILINGUAL CALL CENTER REPRESENTATIVE.
[2019-03-26] MEDS ORDERED: QUETIAPINE FUMARATE 100 MG TABLET PO SCH (22:00)
== END 2019-03-26 21:28 | DRG 775 ==
LOC: ER 19:19 → TELE1 03-26 00:20 → TELE-TD 03-26 00:43
PROVIDERS: ADMIT Nurse Practitioner Acute Care; ATTEND Nurse Practitioner Acute Care
DX: F10.239 Alcohol dependence with withdrawal, unspecified (principal); G92 Toxic encephalopathy; R45.851 Suicidal ideations; F25.1 Schizoaffective disorder, depressive type; F31.9 Bipolar disorder, unspecified; Z59.0 Homelessness; Y90.0 Blood alcohol level of less than 20 mg/100 ml; E66.9 Obesity, unspecified; Z68.35 Body mass index [BMI] 35.0-35.9, adult; F19.10 Other psychoactive substance abuse, uncomplicated; E51.2 Wernicke's encephalopathy; Z91.14 Patient's other noncompliance with medication regimen
CPT/HCPCS: 36415; 80048-TC; 80053-TC; 80061-TC; 80076-TC; 80305; 81000-TC; 83690-TC; 83735-TC; 84100-TC; 84425; 84443-TC; 85025-TC; 87081-TC; A6253; G0378; G0480; J1630; J2060; J7030

== ENCOUNTER 2019-03-28 21:33 | Emergency (ER) | payer MEDICAID ==
[~2019-03-28] VITALS: Ht 188 cm; Wt 122.5 kg
--- NOTE | 2019-03-28 21:44 | NUR ---
PT ASHIA C/O "HAD SOME METH, MOUTH IS NUMB AND I HAVEA HEADACHE." - SOB -N/V -DIZZY AOX4. AMBULATORY VSS.
--- NOTE | 2019-03-28 22:12 | NUR ---
PT BELONGINGS REMOVED AND PLACED IN A SECURE ROOM. SECURITY AT BEDSIDE WITH WANJoshua. NURSING SUP CONTACTED ABOUT 1:1 SITTER.
[2019-03-28 22:30] LABS: BASOPHILS # (AUTO) 0.1 /CMM (0.0-0.2); EOSINOPHILS % (AUTO) 1.7 % (0.0-6.0); HEMATOCRIT 45 % (39-51); HEMOGLOBIN 14.6 g/dL (13.5-17.5); LYMPHOCYTES # (AUTO) 2.4 /CMM (0.8-4.8); LYMPHOCYTES % (AUTO) 34.4 % (20.0-44.0); MEAN CORPUSCULAR HGB CONC 32 g/dl (31.0-36.0); MEAN CORPUSCULAR VOLUME 71 fL (80-96); MONOCYTES # (AUTO) 0.5 /CMM (0.1-1.30); MONOCYTES % (AUTO) 6.9 % (2.0-12.0); NEUTROPHILS # (AUTO) 3.9 /CMM (1.8-8.9); PLATELET COUNT (AUTO) 205 /CMM (150-450); WHITE BLOOD COUNT (AUTO) 6.9 K/uL (4.3-11.0)
[2019-03-28 22:40] LABS: BILIRUBIN,DIRECT 0.1 mg/dL (0.0-0.2); BILIRUBIN,TOTAL 0.5 mg/dL (0.2-1.0); CALCIUM, SERUM 8.8 mg/dL (8.5-10.1); CREATININE 1.2 mg/dL (0.6-1.3); POTASSIUM 3.7 mmol/L (3.5-5.1); SALICYLATE 0.8 mg/dL (2.8-20.0); TOTAL PROTEIN, SERUM 8.5 g/dL (6.4-8.2)
[2019-03-28 23:39] LABS: NEUTROPHILS % (MANUAL) 59 (42-76)
[2019-03-28 23:40] LABS: EOSINOPHILS % (MANUAL) 1 % (0-4); LYMPHOCYTES % (MANUAL) 35 % (16-48); MONOCYTES % (MANUAL) 5 % (0-11.0)
[2019-03-29 03:28] LABS: APPEARANCE,URINE Clear (CLEAR); BILIRUBIN,URINE Negative (NEGATIVE); BLOOD, URINE Negative Ery/uL (NEGATIVE); COLOR,URINE Yellow (YELLOW); KETONES,URINE Trace (NEGATIVE); LEUKOCYTE ESTERASE ,URINE Negative (NEGATIVE); NITRITE, URINE Negative (NEGATIVE); PH,URINE 5.5 (5.0-8.0); PROTEIN,URINE Negative (NEGATIVE); UGLUCOSE Negative (NEGATIVE); UROBILINOGEN,URINE 0.2 EU/dL (0.2)
[2019-03-29 04:34] LABS: BACTERIA,URINE Rare /HPF (None Seen); RBC,URINE 0-2 /HPF (0-2); SQUAMOUS EPITHELIAL CELL,UR Rare /HPF (None Seen); WBC,URINE 0-2 /HPF (0-3)
[2019-03-29] MEDS ORDERED: OLANZAPINE 10 MG VIAL IM ONE ×2 (04:44→05:00)
--- NOTE | 2019-03-29 06:41 | NUR ---
AMBULANCE ETA 0900. REPORT GIVEN TO NELDA GARCIA.
[2019-03-29 07:18] VITALS: BP 151/88
--- NOTE | 2019-03-29 07:24 | NUR ---
NO SITTERS AVAILABLE AT THIS TIME FOR [facility]ALEE PER HOUSE SUP
--- NOTE | 2019-03-29 07:59 | NUR ---
REPORT GIVEN SHAWNEE GARCIA.
--- NOTE | 2019-03-29 08:20 | NUR ---
CALLED [facility] AND UPDATED THEM THAT THE PATIENT WILL GO TO [facility] INSTEAD OF [facility]. ETA BETWEEN 9AM AND 930AM.
--- NOTE | 2019-03-29 09:47 | NUR ---
Patient discharged to [facility] in stable condition going to [facility]. Written and verbal after care instructions given. Patient verbalized understanding of instruction.
== END 2019-03-29 09:54 ==
LOC: ER 21:35
DX: R45.851 Suicidal ideations (principal); R44.0 Auditory hallucinations; I10 Essential (primary) hypertension; F17.200 Nicotine dependence, unspecified, uncomplicated; F31.9 Bipolar disorder, unspecified
CPT/HCPCS: 36415 ×2; 80048; 80076; 80307 ×2; 80329; 81001; 85025; 96372; 99285; 99406; J3490; 80305; 81000-TC; G0480